=== PATIENT | female | born 1995 | race Caucasian/White ===

== ENCOUNTER → 2017-08-01 | Outpatient (REF) | LOC: WSOH 13:22 | DX: Z02.89 Encounter for other administrative examinations (principal) ==

== ENCOUNTER → 2017-08-03 | Outpatient (REF) | LOC: WSOH 14:49 | DX: Z02.89 Encounter for other administrative examinations (principal) ==

== ENCOUNTER → 2017-08-14 | Outpatient (REF) | LOC: WSOH 15:00 | DX: Z02.89 Encounter for other administrative examinations (principal) ==

== ENCOUNTER → 2017-08-14 | Outpatient (REF) | LOC: WSOH 14:31 | DX: Z02.89 Encounter for other administrative examinations (principal) ==